=== PATIENT | male | born 1965 | race Caucasian/White ===

== ENCOUNTER 2017-07-26 06:49 | Day surgery (SDC) | payer OTHER ==
[2017-07-26 07:22] LABS: BEDSIDE GLUCOSE 114 MG/DL (70-105)
[2017-07-26] MEDS: NS 1,000 ML IV (07:27)
[2017-07-26] MEDS ORDERED: PROPOFOL 500 MG/50 ML VIAL As Ordered (07:35)
[2017-07-26] MEDS ORDERED: LIDOCAINE 2% INJ 100 MG/5 ML SDV (FOR ANES.) As Ordered (07:35)
== END 2017-07-26 08:26 | disposition home or self-care (01) ==
LOC: M OPP 06:49
DX: Z12.11 Encounter for screening for malignant neoplasm of colon (principal); D12.3 Benign neoplasm of transverse colon; D12.5 Benign neoplasm of sigmoid colon; K62.1 Rectal polyp; I10 Essential (primary) hypertension; E78.5 Hyperlipidemia, unspecified; E11.9 Type 2 diabetes mellitus without complications; K21.9 Gastro-esophageal reflux disease without esophagitis; M19.90 Unspecified osteoarthritis, unspecified site; R09.81 Nasal congestion; G47.30 Sleep apnea, unspecified; R06.83 Snoring; Z79.82 Long term (current) use of aspirin; Z79.899 Other long term (current) drug therapy; Z79.4 Long term (current) use of insulin
CPT/HCPCS: 45385

== ENCOUNTER → 2022-11-04 | Outpatient (CLI) | payer OTHER ==
[~2022-11-04] MED LIST: ASPI81TA86 PO; ATEN25TA PO; ATOR40TA75 PO; FLUT50SP17; GLYB5TAB6 PO; HYDR-3490 PO; INVO300T PO; METF-415 PO; QUIN1TAB4 PO; TRUL10IN SUBQ
== END ==
LOC: M RAD 08:31
PROVIDERS: ATTEND Internal Medicine Nephrology
DX: I70.1 Atherosclerosis of renal artery (principal)